=== PATIENT | female | born 2000 | race Caucasian/White ===

== ENCOUNTER 2022-03-22 15:41 | Emergency (ER) | payer MEDICAID ==
[~2022-03-22] VITALS: Ht 160 cm; Wt 52.2 kg
[2022-03-22 16:05] VITALS: BP 106/62
--- NOTE | 2022-03-22 16:09 | NUR ---
PT AMB TO BED 12.
--- NOTE | 2022-03-22 16:50 | NUR ---
DR. DENSON AT BEDSIDE
--- NOTE | 2022-03-22 17:00 | NUR ---
UA AT BEDSIDE
[2022-03-22 17:04] LABS: APPEARANCE,URINE CLEAR (CLEAR); BILIRUBIN,URINE NEGATIVE (NEGATIVE); BLOOD, URINE 3+ (NEGATIVE); LEUKOCYTE ESTERASE ,URINE NEGATIVE (NEGATIVE); NITRITE, URINE NEGATIVE (NEGATIVE); UGLUCOSE NEGATIVE (NEGATIVE)
[2022-03-22 17:07] LABS: COLOR,URINE STRAW (YELLOW)
[2022-03-22 17:07] LABS: BASOPHILS % (AUTO) 0.6 % (0.0-2.0); EOSINOPHILS # (AUTO) 0.1 K/uL (0-0.4); EOSINOPHILS % (AUTO) 1.8 % (0.0-4.0); HEMATOCRIT 36.4 % (36-48); HEMOGLOBIN 12.3 g/dL (12.0-16.0); LYMPHOCYTES # (AUTO) 2.9 K/uL (2.5-16.5); LYMPHOCYTES % (AUTO) 37.3 % (20.5-51.1); MEAN CORPUSCULAR HEMOGLOBIN 31 pg (27-31); MEAN CORPUSCULAR HGB CONC 34 g/dL (33-37); MEAN CORPUSCULAR VOLUME 90.3 fL (80-94); MONOCYTES # (AUTO) 0.4 K/uL (0.8-1.0); MONOCYTES % (AUTO) 5.7 % (1.7-9.3); NEUTROPHILS # (AUTO) 4.3 K/uL (1.8-7.7); NEUTROPHILS % (AUTO) 54.6 % (42.2-75.2); PLATELET COUNT (AUTO) 274 K/uL (140-450); RED BLOOD CELL COUNT(AUTO) 4.04 MIL/uL (4.20-5.40); RED CELL DISTRIBUTION WIDTH 12.6 % (11.6-13.7); WHITE BLOOD COUNT (AUTO) 7.8 K/uL (4.5-11.0)
[2022-03-22 17:21] LABS: WBC,URINE NONE SEEN /HPF (0-5)
[2022-03-22 17:35] LABS: ALBUMIN 3.9 g/dL (3.4-5.0); ANION GAP 14.3 (8-16); CARBON DIOXIDE 27.6 mmol/L (21-32); CREATININE 0.5 mg/dL (0.6-1.3); POTASSIUM 3.9 mmol/L (3.5-5.1); TOTAL BILIRUBIN 0.2 mg/dL (0.0-1.0)
[2022-03-22] MEDS ORDERED: ACETAMINOPHEN EXTRA STRENGTH 500 MG TAB PO ONE (19:05)
--- NOTE | 2022-03-22 19:15 | NUR ---
Pt report given to STANISLAV SO AND TONY SO. Transfer of care at this time.
--- NOTE | 2022-03-22 19:20 | NUR ---
Report received from Jennie SO and Simin CARY
--- NOTE | 2022-03-22 19:30 | NUR ---
RESUMED CARE FOR PATIENT. PATIENT IN BED, TEARY. DENIES PAIN AT THIS TIME. PATIENT PLACED ON BEDSIDE MONITOR. BED LOW AND LOCKED. DOESNT APPEAR TO BE IN DISTRESS. ARON SIDE RAILS FOR SAFETY.
--- NOTE | 2022-03-22 19:50 | NUR ---
PATIENT SIGNIFICANT OTHER AT BEDSIDE.
--- NOTE | 2022-03-22 19:52 | NUR ---
PATIENT REFUSED MEDICATION. STATED THAT SHE IS NOT IN PAIN AT THIS TIME.
--- NOTE | 2022-03-22 21:05 | NUR ---
Note jason in EDM - 03/22/22 at 2118 by DAMARIS Patient will be admitted to care of ROCKY PAIGE. Admited to MED/SURG. Will go to room 108B. Belongings list completed. Report to JUDAH MARIA. TRANSFER OF CARE
--- NOTE | 2022-03-22 21:05 | NUR ---
REPORT GIVEN TO JUDAH MARIA. TRANSFER OF CARE.
--- NOTE | 2022-03-22 21:06 | NUR ---
ANGELICA PAIGE AT BEDSIDE ASSESSING PATIENT
--- NOTE | 2022-03-22 21:12 | NUR ---
CALLED JUDAH MARIA. STATED THAT PATIENT WASNT COMING TO FLOOR. PATIENT DISCHARGED.
--- NOTE | 2022-03-22 21:15 | NUR ---
MD PAIGE STATED THAT PATIENT IS READY FOR DISCHARGE. ANGELICA DENSON STATED HE WOULD BE PRINTING D/C PAPERS.
[2022-03-22] MEDS ORDERED: ACET-10509 PO (22:07)
[2022-03-22] MEDS ORDERED: CEPH-588 PO (22:09)
[2022-03-22 22:14] VITALS: BP 107/59
--- NOTE | 2022-03-22 22:18 | NUR ---
Patient discharged with v/s stable. Written and verbal after care instructions given and explained. Patient alert, oriented and verbalized understanding of instructions. Ambulatory with steady gait. All questions addressed prior to discharge. ID band removed. Patient advised to follow up with PMD. Rx of ACETAMINOPHEN AND KEFLEX given. Patient educated on indication of medication including possible reaction and side effects. Opportunity to ask questions provided and answered.
== END 2022-03-22 22:18 | disposition home or self-care (01) ==
LOC: MED 15:41 → MTU 19:12 → UNDOADMIN 19:12 → UNDODEPER 21:27 → MED 22:18
DX: O26.899 Other specified pregnancy related conditions, unspecified trimester (principal); Z20.822 Contact with and (suspected) exposure to COVID-19; N94.89 Other specified conditions associated with female genital organs and menstrual cycle; R22.9 Localized swelling, mass and lump, unspecified
CPT/HCPCS: 36415; 76801; 80053; 81001; 81025; 84702; 85025; 86900; 86901; 87426; 87491; 99285; Q0092

== ENCOUNTER 2022-03-31 10:25 | Emergency (ER) | payer MEDICAID ==
[~2022-03-31] VITALS: Ht 165.1 cm; Wt 52.2 kg
[~2022-03-31 10:25] MED LIST: ACET-10509 PO; CEPH-588 PO
[2022-03-31 10:34] VITALS: BP 122/75
--- NOTE | 2022-03-31 10:34 | NUR ---
PT IN CHAIR C
--- NOTE | 2022-03-31 10:45 | NUR ---
21 Y/O FEMALE BIB SELF C/O VAGINAL BLEEDING X9DAYS, PER PT SHE WAS SEEN IN THE ED ON 03/22/22 AND WAS DX WITH THREATENED MISCARRIAGE AND NOTED DARK COLORED BLOOD WITH CLOTS, NOW STATING THAT BLOOD IS BRIGHT RED. , LMP UNSURE 02/09 OR 03/12. STATES BLOOD IN TOILET, DENIES SATURATING PADS. STATES SLIGHT LOWER ABD CRAMPING NKA PMH: DENIES
--- NOTE | 2022-03-31 11:13 | NUR ---
Patient ambulated to bed 7.
--- NOTE | 2022-03-31 11:24 | NUR ---
Ultrasound at bedside.
[2022-03-31 11:41] LABS: APPEARANCE,URINE SL CLOUDY (CLEAR); BILIRUBIN,URINE NEGATIVE (NEGATIVE); BLOOD, URINE 3+ (NEGATIVE); COLOR,URINE YELLOW (YELLOW); LEUKOCYTE ESTERASE ,URINE NEGATIVE (NEGATIVE); NITRITE, URINE NEGATIVE (NEGATIVE); UGLUCOSE NEGATIVE (NEGATIVE)
[2022-03-31 11:41] LABS: BASOPHILS % (AUTO) 0.4 % (0.0-2.0); EOSINOPHILS # (AUTO) 0.3 K/uL (0-0.4); EOSINOPHILS % (AUTO) 3.5 % (0.0-4.0); HEMATOCRIT 37.2 % (36-48); HEMOGLOBIN 12.7 g/dL (12.0-16.0); LYMPHOCYTES # (AUTO) 2.4 K/uL (2.5-16.5); LYMPHOCYTES % (AUTO) 31.7 % (20.5-51.1); MEAN CORPUSCULAR HEMOGLOBIN 31 pg (27-31); MEAN CORPUSCULAR HGB CONC 34 g/dL (33-37); MEAN CORPUSCULAR VOLUME 90.6 fL (80-94); MONOCYTES # (AUTO) 0.6 K/uL (0.8-1.0); MONOCYTES % (AUTO) 7.4 % (1.7-9.3); NEUTROPHILS # (AUTO) 4.3 K/uL (1.8-7.7); PLATELET COUNT (AUTO) 245 K/uL (140-450); RED BLOOD CELL COUNT(AUTO) 4.11 MIL/uL (4.20-5.40); RED CELL DISTRIBUTION WIDTH 12.7 % (11.6-13.7); WHITE BLOOD COUNT (AUTO) 7.6 K/uL (4.5-11.0)
[2022-03-31 12:01] LABS: WBC,URINE 0-5 /HPF (0-5)
[2022-03-31 12:03] LABS: RBC,URINE 20-50 /HPF (0-5)
[2022-03-31 12:04] LABS: OTHER CASTS, URINE None Seen /LPF (None Seen)
--- NOTE | 2022-03-31 13:18 | NUR ---
Dr. Saunders re-evaluating patient at bedside.
[2022-03-31] MEDS ORDERED: [UNRECOGNIZED DRUG - CODE] PO (13:22)
[2022-03-31 13:36] VITALS: BP 114/66
--- NOTE | 2022-03-31 13:36 | NUR ---
Patient discharged with v/s stable. Written and verbal after care instructions given. Patient alert, oriented and verbalized understanding of instructions. Ambulatory with steady gait. All questions addressed prior to discharge. ID band removed. Patient advised to follow up with PMD. Rx of cefpodoxime proxetil given. Opportunity to ask questions provided and answered.
== END 2022-03-31 13:36 | disposition home or self-care (01) ==
LOC: MED 10:25
DX: O03.9 Complete or unspecified spontaneous abortion without complication (principal); O46.91 Antepartum hemorrhage, unspecified, first trimester; Z3A.01 Less than 8 weeks gestation of pregnancy
CPT/HCPCS: 36415; 76817; 81001; 81025; 84702; 85025; 86900; 86901; 87086; 99284; Q0092

== ENCOUNTER 2023-04-06 02:45 | Observation (INO) | payer MEDICAID ==
[~2023-04-06] VITALS: Ht 157.5 cm; Wt 73.9 kg
[~2023-04-06 02:45] MED LIST changes: +[UNRECOGNIZED DRUG - CODE] PO
[2023-04-06 04:03] VITALS: BP 132/87; PULSE 68; RESP 18; TEMP 100.1
[2023-04-06] MEDS ORDERED: PREN-564 PO (04:10)
== END 2023-04-06 05:00 | disposition home or self-care (01) ==
LOC: MLD 03:10
PROVIDERS: ADMIT Obstetrics & Gynecology; ATTEND Obstetrics & Gynecology
DX: O34.63 Maternal care for abnormality of vagina, third trimester (principal); N89.8 Other specified noninflammatory disorders of vagina; Z3A.39 39 weeks gestation of pregnancy
CPT/HCPCS: 81000; G0378

== ENCOUNTER 2023-04-07 05:00 | Inpatient (IN) | payer MEDICAID ==
[~2023-04-07] VITALS: Ht 157.5 cm; Wt 73.9 kg
[~2023-04-07 05:00] MED LIST changes: -ACET-10509 PO; -CEPH-588 PO; +PREN-564 PO; -[UNRECOGNIZED DRUG - CODE] PO
[2023-04-07] MEDS ORDERED: NALBUPHINE 10 MG/ML AMP IVP PRN ×2 (05:35→15:25)
[2023-04-07] MEDS ORDERED: LACTATED RINGERS 500 ML IV ONE (05:35)
[2023-04-07] MEDS ORDERED: METHYLERGONOVINE 0.2 MG/ML AMP IM PRN ×2 (05:35→11:20)
[2023-04-07] MEDS ORDERED: AMPICILLIN 2,000 MG in NACL 0.9% MINI-BAG PLUS 100 ML IV SCH (05:35)
[2023-04-07 05:56] LABS: BASOPHILS % (AUTO) 0.3 % (0.0-2.0); EOSINOPHILS # (AUTO) 0.1 K/uL (0-0.4); EOSINOPHILS % (AUTO) 0.5 % (0.0-4.0); HEMATOCRIT 36.1 % (36-48); HEMOGLOBIN 12.7 g/dL (12.0-16.0); LYMPHOCYTES # (AUTO) 1.9 K/uL (2.5-16.5); LYMPHOCYTES % (AUTO) 17.8 % (20.5-51.1); MEAN CORPUSCULAR HEMOGLOBIN 33 pg (27-31); MEAN CORPUSCULAR HGB CONC 35 g/dL (33-37); MEAN CORPUSCULAR VOLUME 94.1 fL (80-94); MONOCYTES # (AUTO) 0.7 K/uL (0.8-1.0); MONOCYTES % (AUTO) 6.4 % (1.7-9.3); NEUTROPHILS # (AUTO) 8.1 K/uL (1.8-7.7); PLATELET COUNT (AUTO) 131 K/uL (140-450); RED BLOOD CELL COUNT(AUTO) 3.84 MIL/uL (4.20-5.40); RED CELL DISTRIBUTION WIDTH 12.9 % (11.6-13.7); WHITE BLOOD COUNT (AUTO) 10.8 K/uL (4.5-11.0)
[2023-04-07] MEDS: LACTATED RINGERS 1,000 ML IV SCH ×3 (06:05→08:42)
[2023-04-07] MEDS ORDERED: AMPICILLIN 2,000 MG VIAL ONE (06:15)
[2023-04-07 06:34] LABS: BILIRUBIN,URINE NEGATIVE (NEGATIVE); COLOR,URINE YELLOW (YELLOW); LEUKOCYTE ESTERASE ,URINE NEGATIVE (NEGATIVE); NITRITE, URINE NEGATIVE (NEGATIVE); PH,URINE 6.5 (5.0-9.0); PROTEIN,URINE 2+ (NEGATIVE); UGLUCOSE NEGATIVE (NEGATIVE); UROBILINOGEN,URINE 0.2 EU/dL (0.2 - 1)
[2023-04-07 06:44] LABS: APPEARANCE,URINE SLIGHTLY HAZY (CLEAR)
[2023-04-07 06:45] LABS: BLOOD, URINE 1+ (NEGATIVE)
[2023-04-07 06:46] LABS: BACTERIA,URINE FEW /HPF (None Seen); RBC,URINE 0-5 /HPF (0-5); SQUAMOUS EPITHELIAL CELL,UR 4-10 (MOD) /LPF (0-3 (FEW)); WBC,URINE 0-5 /HPF (0-5)
[2023-04-07 06:47] LABS: AMPHETAMINE, URINE NEGATIVE ng/ml (NEG <=1000); BARBITURATE, URINE NEGATIVE ng/ml (NEG <=200); BENZODIAZEPINE, URINE NEGATIVE ng/mL (NEG <=200); CANNABINOID, URINE NEGATIVE ng/mL (NEG <=50); COCAINE, URINE NEGATIVE ng/mL (NEG <=300); OPIATE, URINE NEGATIVE ng/mL (NEG <=2000); PHENCYCLIDINE SCREEN,URINE NEGATIVE ng/mL (NEG <=25)
[2023-04-07 07:02] LABS: ALBUMIN 2.2 g/dL (3.4-5.0); ANION GAP 14.8 (8-16); CALCIUM 8.8 mg/dL (8.5-10.1); CARBON DIOXIDE 22.9 mmol/L (21-32); CREATININE 0.7 mg/dL (0.6-1.3); POTASSIUM 3.7 mmol/L (3.5-5.1); TOTAL BILIRUBIN 0.2 mg/dL (0.0-1.0); TOTAL PROTEIN, SERUM 6.9 g/dL (6.4-8.2)
[2023-04-07 07:24] VITALS: BP 137/88; PULSE 93; RESP 18; TEMP 97.3
[2023-04-07 07:54] LABS: INR 0.86 (0.8-1.2); PARTIAL THROMBOPLASTIN TIME 26.5 secs (22-35.6); PROTHROMBIN TIME 9.1 secs (10.8-13.4)
[2023-04-07] MEDS ORDERED: ROPIVACAINE 0.2%/NS PREMIX 200 ML EPI ONE (08:09)
[2023-04-07] MEDS ORDERED: OXYTOCIN 20 UNITS/LR PREMIX 1,000 ML IV ONE (08:55)
[2023-04-07] MEDS ORDERED: AMPICILLIN 1,000 MG VIAL ONE (09:43)
[2023-04-07] MEDS ORDERED: ONDANSETRON 4 MG/2 ML VIAL ONE (10:29)
[2023-04-07] MEDS ORDERED: ONDANSETRON 4 MG/2 ML VIAL IVP PRN (10:30)
[2023-04-07] MEDS ORDERED: BENZOCAINE/MENTHOL 20%-0.5% 60 GM CAN TP PRN (11:20)
[2023-04-07] MEDS ORDERED: OXYTOCIN 10 UNITS/ML VIAL IM PRN (11:20)
[2023-04-07] MEDS ORDERED: TEMAZEPAM 15 MG CAP PO PRN (11:20)
[2023-04-07] MEDS ORDERED: oxyCODONE/APAP 5/325 MG 1 TAB TAB PO PRN ×2 (11:20)
[2023-04-07] MEDS ORDERED: METHYLERGONOVINE 0.2 MG TAB PO PRN (11:20)
[2023-04-07] MEDS: IBUPROFEN 800 MG TAB PO PRN (12:08)
[2023-04-07] MEDS ORDERED: CARBOPROST 250 MCG/ML AMP IM SCH (14:23)
[2023-04-07] MEDS ORDERED: CARBOPROST 250 MCG/ML AMP IM ONE (14:24)
[2023-04-07] MEDS ORDERED: NALBUPHINE 10 MG/ML AMP ONE (15:22)
[2023-04-07] MEDS ORDERED: MISOPROSTOL 100 MCG TAB RC ONE (15:40)
[2023-04-07] MEDS ORDERED: MISOPROSTOL 200 MCG TAB ONE (15:42)
[2023-04-07] MEDS ORDERED: MISOPROSTOL 200 MCG TAB RC SCH (15:50)
[2023-04-07] MEDS ORDERED: LABETALOL 200 MG TAB PO ONE (16:45)
[2023-04-07] MEDS ORDERED: LABETALOL 200 MG TAB ONE (16:54)
[2023-04-07] MEDS ORDERED: DOCUSATE SOD/SENNA 50/8.6 MG 1 TAB PO SCH (21:00)
[2023-04-08 08:43] LABS: HEMATOCRIT 30.2 % (36-48); HEMOGLOBIN 10.4 g/dL (12.0-16.0)
[2023-04-08] MEDS: IBUPROFEN 800 MG TAB PO PRN (12:04)
[2023-04-09] MEDS ORDERED: FLU VACCINE QS2023-24 0.5 ML SYR IMVAC ONE
[2023-04-09] MEDS ORDERED: MEASLES, MUMPS, AND RUBELLA 1 VIAL SQVAC ONE (00:15)
[2023-04-09 06:08] LABS: HEPATITIS B SURFACE ANTIGEN Negative (Negative)
[2023-04-09] MEDS: IBUPROFEN 800 MG TAB PO PRN (11:12)
[2023-04-11 13:31] LABS: RUBELLA AB IGG <0.90 index (Immune >0.99)
== END 2023-04-09 12:45 | disposition home or self-care (01) | DRG 560 ==
LOC: MLD 05:00 → MFCC 18:05
PROVIDERS: ADMIT Obstetrics & Gynecology; ATTEND Obstetrics & Gynecology
PROC: 10D07Z6 Extraction of Products of Conception, Vacuum, Via Natural or Artificial Opening (ICD-10-PCS; principal; 2023-04-07)
PROC: 0W8NXZZ Division of Female Perineum, External Approach (ICD-10-PCS; 2023-04-07)
PROC: 3E0R3BZ Introduction of Anesthetic Agent into Spinal Canal, Percutaneous Approach (ICD-10-PCS; 2023-04-07)
PROC: 00HU33Z Insertion of Infusion Device into Spinal Canal, Percutaneous Approach (ICD-10-PCS; 2023-04-07)
DX: O80 Encounter for full-term uncomplicated delivery (principal); Z37.0 Single live birth; R71.0 Precipitous drop in hematocrit; Z20.822 Contact with and (suspected) exposure to COVID-19; Z3A.39 39 weeks gestation of pregnancy
CPT/HCPCS: 36415; 51702; 80053; 80305; 81001; 85018; 85025; 85610; 85730; 86592; 86762; 86886; 86900; 86901; 87340; 87653-90; 90707; 90715; J0290; J2300; J2405; J2590; J2795; J3490